=== PATIENT | female | born 2000 | race African-American/Black ===

== ENCOUNTER 2021-04-17 10:18 | Emergency (ER) | payer MEDICAID, SELFPAY ==
--- NOTE | ~2021-04-17 | US_ITS ---
EXAMINATION: ULTRASOUND OB PELVIC AND TRANSVAGINAL CLINICAL INFORMATION: Abdominal cramping. Positive home test COMPARISON: None TECHNIQUE: Transabdominal and transvaginal pelvic ultrasound was performed. Transvaginal exam was performed for better visualization of the uterus and ovaries. FINDINGS: The uterus is anteverted and normal in size and shape. No focal uterine lesion is seen. The endometrium is thickened measuring 1.8 cm. No intrauterine gestational sac is seen. The cervix is normal appearing. The right ovary measures 4.4 x 2.3 x 2.7 cm. There is a 1.8 x 2 x 2.2 cm simple right ovarian cyst in the left ovary is normal-appearing and measures 1.9 x 1 x 2.2 cm. There is no fluid in the pelvis.. US/US OB pelvic and transvaginal IMPRESSION: Thickened endometrium measuring 1.8 cm. No intrauterine seen. This may represent a very early . Correlation with quantitative beta-hCG exam and follow-up ultrasound recommended.
[2021-04-17 10:20] VITALS: BP 114/54; PULSE 66; RESP 18; TEMP 36.5; O2SAT 100; BMI 18.0
[2021-04-17 11:40] LABS: MANUAL DIFF FLAG NO
[2021-04-17 11:46] LABS: Glucose Urine UA NEG (NEG); Leukocyte Esterase Urine 1+ (NEG); Nitrite Urine NEG (NEG); PH 6.5 (5.0-8.0); UACC Culture Trigger YES; Urine Blood TRACE (NEG); Urine Ketones NEG (NEG); Urine Protein TRACE MG/DL (NEG-TRACE)
[2021-04-17 11:47] LABS: Appearance Urine CLOUDY; Color Urine YELLOW
[2021-04-17 11:48] LABS: UPreg QC Valid YES; Urine Pregnancy POSITIVE (NEGATIVE)
[2021-04-17 11:52] LABS: Basophils Percent Auto 0.4 % (0-2); Eosinophils Absolute Auto 0.1 X10*3/uL (0.0-0.4); Eosinophils Percent Auto 1.5 % (0-4); Hematocrit 40.2 % (37-47); Hemoglobin 13.5 g/dl (12.0-16.0); Imm Gran Abs Auto 0.04 X10*3/uL (0.00-0.03); Imm Gran Pct Auto 0.4 % (0.0-0.4); Lymphocytes Absolute Auto 1.9 X10*3/uL (1.2-4.9); Lymphocytes Percent Auto 20.1 % (20-40); Mean Corpuscular HGB Conc 33.6 g/dl (31.0-35.0); Mean Corpuscular Hemoglobin 30.7 pg (27.0-33.0); Mean Corpuscular Volume 91.4 fL (80-98); Mean Platelet Volume 10.3 fL (9.4-12.3); Monocytes Absolute Auto 0.7 X10*3/uL (0.1-1.2); Monocytes Percent Auto 7.7 % (2-11); Neutrophils Absolute Auto 6.4 X10*3/uL (2.0-8.3); Neutrophils Percent Auto 69.9 % (45-73); Platelet Count 330 X10*3/uL (160-400); Red Cell Distribution Width 13.2 % (11.0-16.0); White Blood Count 9.2 X10*3/uL (4.8-10.8)
[2021-04-17 11:57] LABS: Bacteria Urine 1+ /LPF; Squamous Epithelial Cell Urine 2+ /LPF
--- NOTE | 2021-04-17 12:37 | ED_ITS ---
HPI - General Chief complaint: Abdominal Pain <SANDRA Wang - Last Filed: 04/17/21 14:19> Stated complaint: abd cramps <SANDRA Wang - Last Filed: 04/17/21 14:19> Time Seen by Provider: 04/17/21 10:47 <SANDRA Wang - Last Filed: 04/17/21 14:19> Source: patient <SANDRA Wang Last Filed: 04/17/21 14:19> Mode of arrival: ambulatory <SANDRA Wang - Last Filed: 04/17/21 14:19> Limitations: no limitations <SANDRA Wang Last Filed: 04/17/21 14:19> History of Present Illness HPI Narrative: 21-year-old female with a past medical history of migraine headaches and ovarian cyst presenting to the ED with reports of a positive home test yesterday after having a last menstrual period of 03/17/2021. Reports that she took her Nexplanon out approximately 1 year ago. She was not planning this . She reports this would be her 1st she has never had a miscarriage or an . She reports she has been having some abdominal cramping for the past 4 days this is why she took the test. She denies any fevers, dizziness, headaches, nausea /vomiting, chest pain, shortness of breath, back pain, dysuria, hematuria, abnormal vaginal discharge, diarrhea, constipation, any thoughts of STD's or any other symptoms complaints or concerns at this time. <SANDRA Wang Last Filed: 04/17/21 14:19> MD Complaint: abdominal pain and other (+ home test) <SANDRA Wang - Last Filed: 04/17/21 14:19> Onset (ago): day(s) ( Four days of abdominal cramping) <SANDRA Wang Last Filed: 04/17/21 14:19> Pain Consistency: constant <SANDRA Wang Last Filed: 04/17/21 14:19> Location: abdomen ( lower abdomen) <SANDRA Wang Last Filed: 04/17/21 14:19> Severity: mild <SANDRA Wang Last Filed: 04/17/21 14:19> Quality: Cramping <SANDRA Wang Last Filed: 04/17/21 14:19> Relieving factors: none <SANDRA Wang Last Filed: 04/17/21 14:19> Exacerbating factors: none <SANDRA Wang Last Filed: 04/17/21 14:19> Associated symptoms: denies other symptoms <SANDRA Wang Last Filed: 04/17/21 14:19> Vaginal discharge: none <SANDRA Wang Last Filed: 04/17/21 14:19> Vaginal bleeding: none <SANDRA Wang Last Filed: 04/17/21 14:19> Date of Last Menstrual Period: 03/17/21 <SANDRA Wang Last Filed: 04/17/21 14:19> Patient : Yes <SANDRA Wang Last Filed: 04/17/21 14:19> care: none <SANDRA Wang Last Filed: 04/17/21 14:19> Related Data Home medications: Previous Rx's Medication Instructions Recorded nitrofurantoin monohyd/m-cryst 100 mg PO BID 7 Days #14 cap 04/17/21 [Macrobid] <SANDRA Wang Last Filed: 04/17/21 14:19> Allergies/Adverse reactions: Allergies Allergy/AdvReac Type Severity Reaction Status Date / Time No Known Allergies Allergy Verified 04/25/21 15:45 <SANDRA Wang Last Filed: 04/17/21 14:19> Review of Systems Review of Systems: Constitutional : No Weight loss, No Fever, No Chills, No Night Sweats, No Fatigue, NoMalaise ENT/Mouth: No ear pain, No sore throat, No Difficulty swallowing Cardiovascular : No Chest Pain, No SOB, No Dyspnea on Exertion, No Orthopnea, NoEdema, No Palpitations Respiratory : No Cough, No Sputum, No Wheezing, No Dyspnea Gastrointestinal : positive abdominal cramping and a positive home test, No Nausea, No Vomiting, No Diarrhea, No blood streaked emesis, No coffee- ground emesis, No gross hematemesis, No blood streak stool, No gross hematochezi a, No Melena Genitourinary : No irregular bleeding, No Dysuria, No Urinary Frequency, No Hematuria,No Urinary Incontinence, No Urgency, No Flank Pain Musculoskeletal : No joint pain, No Myalgias, No Joint Swelling Skin : No Skin Lesions, No rash Neuro : No Weakness, No Numbness, No Paresthesias, No Loss of Consciousness, NoDizziness, No Headache Psych : No Social Issues, Heme/Lymph: No Bruising, No Bleeding,No Lymphadenopathy Endocrine : No Polyuria, No Polydipsia, No Temperature Intolerance <SANDRA Wang - Last Filed: 04/17/21 14:19> Yes all other systems are reviewed and are negative <SANDRA Wang - Last Filed: 04/17/21 14:19> FORMERLY [facility], [facility]–1983 Past Medical History Attestation statement: The following information was validated with the patient. <SANDRA Wang - Last Filed: 04/17/21 14:19> Date of Last Menstrual Period: 03/17/21 <SANDRA Wang - Last Filed: 04/17/21 14:19> Physical Exam Vital Signs: Vital Signs: Last Vital Signs Temp 97.9 F 04/17/21 13:57 Pulse 69 04/17/21 13:57 Resp 14 04/17/21 13:57 BP 106/49 L 04/17/21 13:57 Pulse Ox 99 04/17/21 13:57 Body Mass Index 18.0 vital signs have been reviewed as normal and appeared to be correct. Blood pr essure hypotensive at 114/54. Heart rate normal. Respiration rate normal. Temperature normal. Oxygen saturation normal. <SANDRA Wang - Last Filed: 04/17/21 14:19> Vital Signs: Last Vital Signs Temp 97.9 F 04/17/21 13:57 Pulse 69 04/17/21 13:57 Resp 14 04/17/21 13:57 BP 106/49 L 04/17/21 13:57 Pulse Ox 99 04/17/21 13:57 Body Mass Index 18.0 <Дмитрий Macdonald MD - Last Filed: 05/06/21 20:56> Appearance: Alert. Oriented X3. No acute distress. Head: Normal external exam. Normocephalic. Eyes: PERRLA. EOMI. Conjunctiva and sclera normal. Eyelids normal. ENT: Pharynx normal. Uvula midline. Moist mucous membranes. Neck: Normal inspection. Neck supple. FROM. No adenopathy. No meningeal signs. CVS: Normal heart rate and rhythm. Heart sound normal. No murmurs noted. Pulses normal throughout. Respiratory: No respiratory distress. Painless inspiration. Breath sounds normal. No wheezes/rales/rhonchi noted. Chest nontender. No accessory muscle usage noted or decreased air movement noted. Abdomen: Soft and mild suprapubic abdominal tenderness. Nondistended. No guarding. No rigidity. Bowel sounds normal in all 4 quadrants. No distention noted. No organomegaly noted. No visible injury noted. No rebound tenderness. Negative Rovsing sign. Negative obturator's sign. Negative psoas sign. Negative [place]oa sign. Back: No CVA tenderness. Full range of motion noted. Skin: Skin warm and dry. Normal skin color. Normal skin turgor. No rashes/lesions/lacerations noted. Extremities: Extremities exhibit normal range of motion. Extremities nontender. Neuro: Oriented X 3. No motor deficit. No sensory deficit. Reflexes normal. Normal steady gait. <SANDRA Wang - Last Filed: 04/17/21 14:19> Course Course Course Narrative: 10:45am - 21-year-old female with a past medical history of migraine headaches and ovarian cyst presenting to the ED with reports of a positive home test yesterday after having a last menstrual period of 03/17/2021 With suprapubic lower abdominal cramping for the past 4 days. this would be her 1st never had a miscarriage or . Plan: Labs, UA, serum quant, 1st trimester ultrasound and re-evaluate. <SANDRA Wang - Last Filed: 04/17/21 14:19> I have reviewed the chart <Дмитрий Macdonald MD - Last Filed: 05/06/21 20:56> Reevaluation(s) Reevaluation #1: - patient when labs return and total bilirubin 1.1. Serum quant 322 which makes the patient approximately 3-5 weeks . UA revealed +1 leukocytes therefore will DC home with antibiotics for UTI. Patient had positive test. Ultrasound revealed thickened endometrium although no intrauterine seen at this time due to it may represent a very early therefore consulted with Dr. Perez the OBGYN and he recommended outpatient follow-up for Thursday on 04/19/2021 and repeat serum quant therefore placed disorder at this time for 08:00 instructed patient to return if any new or worsening symptoms and to follow up for the outpatient lab work and with Dr. Perez the alterations tailor by Thursday04/19/2021. Patient understands agrees with this plan. <SANDRA Wang - Last Filed: 04/17/21 14:19> Time: 14:15 <SANDRA Wang - Last Filed: 04/17/21 14:19> MDM - OB/Uterine Contractions Medical Records Attestation: I reviewed the patient's medical records. <SANDRA Wang - Last Filed: 04/17/21 14:19> Lab Data Attestation: I reviewed the patient's lab results. <SANDRA Wang - Last Filed: 04/17/21 14:19> Result diagrams: : 04/17/21 11:16 04/17/21 12:29 <SANDRA Wang - Last Filed: 04/17/21 14:19> Labs: Lab Results 04/17/21 04/17/21 04/17/21 Range/Units 11:07 11:08 11:16 WBC 9.2 (4.8-10.8) X10*3/uL RBC 4.40 (4.20-5.50) X10*6/uL Hgb 13.5 (12.0-16.0) g/dl Hct 40.2 (37-47) % MCV 91.4 (80-98) fL MCH 30.7 (27.0-33.0) pg MCHC 33.6 (31.0-35.0) g/dl RDW 13.2 (11.0-16.0) % Plt Count 330 (160-400) X10*3/uL MPV 10.3 (9.4-12.3) fL Immature Gran % (Auto) 0.4 (0.0-0.4) % Neut % (Auto) 69.9 (45-73) % Lymph % (Auto) 20.1 (20-40) % [place] % (Auto) 7.7 (2-11) % Eos % (Auto) 1.5 (0-4) % Baso % (Auto) 0.4 (0-2) % Lymph # (Auto) 1.9 (1.2-4.9) X10*3/uL [place] # (Auto) 0.7 (0.1-1.2) X10*3/uL Eos # (Auto) 0.1 (0.0-0.4) X10*3/uL Baso # (Auto) 0.0 (0.0-0.2) X10*3/uL Abs Immat Gran (auto) 0.04 H (0.00-0.03) X10*3/uL Absolute Neuts (auto) 6.4 (2.0-8.3) X10*3/uL Absolute Nucleated RBC 0.000 (0.0-0.012) X10*3/uL Nucleated RBC % (auto) 0.0 (0.0-0.2) /100WBC Sodium (135-145) mmol/L Potassium (3.3-5.1) mmol/L Chloride (96-108) mmol/L Carbon Dioxide (22-29) mmol/L Anion Gap (12-20) BUN (9-16) mg/dL Creatinine (0.5-1.4) mg/dL Estim Creat Clear Calc Estimated GFR Random Glucose (60-115) mg/dL Calcium (8.4-10.2) mg/dL Magnesium (1.6-2.6) mg/dL Total Bilirubin (0.0-1.0) mg/dL AST (5-31) U/L ALT (0-31) U/L Alkaline Phosphatase (39-117) U/L Total Protein (6.5-8.0) g/dL Albumin (3.5-5.0) g/dL Beta HCG, Quant mIU/mL Urine Color YELLOW Urine Appearance CLOUDY Urine pH 6.5 (5.0-8.0) Ur Specific [place] 1.020 (1.005-1.025) Urine Protein TRACE (NEG-TRACE) MG/DL Urine Glucose (UA) NEG (NEG) MG/DL Urine Ketones NEG (NEG) MG/DL Urine Blood TRACE (NEG) Urine Nitrite NEG (NEG) Ur Leukocyte Esterase 1+ H (NEG) Urine RBC 1-4 (0) /HPF Urine WBC 5-9 H (0-4) /HPF Ur Squamous Epith Cells 2+ /LPF Urine Bacteria 1+ /LPF Urine Test POSITIVE H (NEGATIVE) 04/17/21 Range/Units 12:29 WBC (4.8-10.8) X10*3/uL RBC (4.20-5.50) X10*6/uL Hgb (12.0-16.0) g/dl Hct (37-47) % MCV (80-98) fL MCH (27.0-33.0) pg MCHC (31.0-35.0) g/dl RDW (11.0-16.0) % Plt Count (160-400) X10*3/uL MPV (9.4-12.3) fL Immature Gran % (Auto) (0.0-0.4) % Neut % (Auto) (45-73) % Lymph % (Auto) (20-40) % [place] % (Auto) (2-11) % Eos % (Auto) (0-4) % Baso % (Auto) (0-2) % Lymph # (Auto) (1.2-4.9) X10*3/uL [place] # (Auto) (0.1-1.2) X10*3/uL Eos # (Auto) (0.0-0.4) X10*3/uL Baso # (Auto) (0.0-0.2) X10*3/uL Abs Immat Gran (auto) (0.00-0.03) X10*3/uL Absolute Neuts (auto) (2.0-8.3) X10*3/uL Absolute Nucleated RBC (0.0-0.012) X10*3/uL Nucleated RBC % (auto) (0.0-0.2) /100WBC Sodium 136 (135-145) mmol/L Potassium 4.0 (3.3-5.1) mmol/L Chloride 105 (96-108) mmol/L Carbon Dioxide 23 (22-29) mmol/L Anion Gap 12 (12-20) BUN 8 L (9-16) mg/dL Creatinine 0.73 (0.5-1.4) mg/dL Estim Creat Clear Calc 90.9 Estimated GFR > 60 Random Glucose 82 (60-115) mg/dL Calcium 9.1 (8.4-10.2) mg/dL Magnesium 1.7 (1.6-2.6) mg/dL Total Bilirubin 1.1 H (0.0-1.0) mg/dL AST 16 (5-31) U/L ALT 14 (0-31) U/L Alkaline Phosphatase 43 (39-117) U/L Total Protein 7.1 (6.5-8.0) g/dL Albumin 4.1 (3.5-5.0) g/dL Beta HCG, Quant 322 mIU/mL Urine Color Urine Appearance Urine pH (5.0-8.0) Ur Specific [place] (1.005-1.025) Urine Protein (NEG-TRACE) MG/DL Urine Glucose (UA) (NEG) MG/DL Urine Ketones (NEG) MG/DL Urine Blood (NEG) Urine Nitrite (NEG) Ur Leukocyte Esterase (NEG) Urine RBC (0) /HPF Urine WBC (0-4) /HPF Ur Squamous Epith Cells /LPF Urine Bacteria /LPF Urine Test (NEGATIVE) <SANDRA Wang - Last Filed: 04/17/21 14:19> Lab Results 04/17/21 04/17/21 04/17/21 Range/Units 11:07 11:08 11:16 WBC 9.2 (4.8-10.8) X10*3/uL RBC 4.40 (4.20-5.50) X10*6/uL Hgb 13.5 (12.0-16.0) g/dl Hct 40.2 (37-47) % MCV 91.4 (80-98) fL MCH 30.7 (27.0-33.0) pg MCHC 33.6 (31.0-35.0) g/dl RDW 13.2 (11.0-16.0) % Plt Count 330 (160-400) X10*3/uL MPV 10.3 (9.4-12.3) fL Immature Gran % (Auto) 0.4 (0.0-0.4) % Neut % (Auto) 69.9 (45-73) % Lymph % (Auto) 20.1 (20-40) % [place] % (Auto) 7.7 (2-11) % Eos % (Auto) 1.5 (0-4) % Baso % (Auto) 0.4 (0-2) % Lymph # (Auto) 1.9 (1.2-4.9) X10*3/uL [place] # (Auto) 0.7 (0.1-1.2) X10*3/uL Eos # (Auto) 0.1 (0.0-0.4) X10*3/uL Baso # (Auto) 0.0 (0.0-0.2) X10*3/uL Abs Immat Gran (auto) 0.04 H (0.00-0.03) X10*3/uL Absolute Neuts (auto) 6.4 (2.0-8.3) X10*3/uL Absolute Nucleated RBC 0.000 (0.0-0.012) X10*3/uL Nucleated RBC % (auto) 0.0 (0.0-0.2) /100WBC Sodium (135-145) mmol/L Potassium (3.3-5.1) mmol/L Chloride (96-108) mmol/L Carbon Dioxide (22-29) mmol/L Anion Gap (12-20) BUN (9-16) mg/dL Creatinine (0.5-1.4) mg/dL Estim Creat Clear Calc Estimated GFR Random Glucose (60-115) mg/dL Calcium (8.4-10.2) mg/dL Magnesium (1.6-2.6) mg/dL Total Bilirubin (0.0-1.0) mg/dL AST (5-31) U/L ALT (0-31) U/L Alkaline Phosphatase (39-117) U/L Total Protein (6.5-8.0) g/dL Albumin (3.5-5.0) g/dL Beta HCG, Quant mIU/mL Urine Color YELLOW Urine Appearance CLOUDY Urine pH 6.5 (5.0-8.0) Ur Specific [place] 1.020 (1.005-1.025) Urine Protein TRACE (NEG-TRACE) MG/DL Urine Glucose (UA) NEG (NEG) MG/DL Urine Ketones NEG (NEG) MG/DL Urine Blood TRACE (NEG) Urine Nitrite NEG (NEG) Ur Leukocyte Esterase 1+ H (NEG) Urine RBC 1-4 (0) /HPF Urine WBC 5-9 H (0-4) /HPF Ur Squamous Epith Cells 2+ /LPF Urine Bacteria 1+ /LPF Urine Test POSITIVE H (NEGATIVE) 04/17/21 Range/Units 12:29 WBC (4.8-10.8) X10*3/uL RBC (4.20-5.50) X10*6/uL Hgb (12.0-16.0) g/dl Hct (37-47) % MCV (80-98) fL MCH (27.0-33.0) pg MCHC (31.0-35.0) g/dl RDW (11.0-16.0) % Plt Count (160-400) X10*3/uL MPV (9.4-12.3) fL Immature Gran % (Auto) (0.0-0.4) % Neut % (Auto) (45-73) % Lymph % (Auto) (20-40) % [place] % (Auto) (2-11) % Eos % (Auto) (0-4) % Baso % (Auto) (0-2) % Lymph # (Auto) (1.2-4.9) X10*3/uL [place] # (Auto) (0.1-1.2) X10*3/uL Eos # (Auto) (0.0-0.4) X10*3/uL Baso # (Auto) (0.0-0.2) X10*3/uL Abs Immat Gran (auto) (0.00-0.03) X10*3/uL Absolute Neuts (auto) (2.0-8.3) X10*3/uL Absolute Nucleated RBC (0.0-0.012) X10*3/uL Nucleated RBC % (auto) (0.0-0.2) /100WBC Sodium 136 (135-145) mmol/L Potassium 4.0 (3.3-5.1) mmol/L Chloride 105 (96-108) mmol/L Carbon Dioxide 23 (22-29) mmol/L Anion Gap 12 (12-20) BUN 8 L (9-16) mg/dL Creatinine 0.73 (0.5-1.4) mg/dL Estim Creat Clear Calc 90.9 Estimated GFR > 60 Random Glucose 82 (60-115) mg/dL Calcium 9.1 (8.4-10.2) mg/dL Magnesium 1.7 (1.6-2.6) mg/dL Total Bilirubin 1.1 H (0.0-1.0) mg/dL AST 16 (5-31) U/L ALT 14 (0-31) U/L Alkaline Phosphatase 43 (39-117) U/L Total Protein 7.1 (6.5-8.0) g/dL Albumin 4.1 (3.5-5.0) g/dL Beta HCG, Quant 322 mIU/mL Urine Color Urine Appearance Urine pH (5.0-8.0) Ur Specific [place] (1.005-1.025) Urine Protein (NEG-TRACE) MG/DL Urine Glucose (UA) (NEG) MG/DL Urine Ketones (NEG) MG/DL Urine Blood (NEG) Urine Nitrite (NEG) Ur Leukocyte Esterase (NEG) Urine RBC (0) /HPF Urine WBC (0-4) /HPF Ur Squamous Epith Cells /LPF Urine Bacteria /LPF Urine Test (NEGATIVE) <Дмитрий Macdonald MD - Last Filed: 05/06/21 20:56> Imaging Data Ultrasound OB pelvic/transvaginal: Attestation: I personally reviewed and interpreted this imaging study as follows: <SANDRA Wang - Last Filed: 04/17/21 14:19> Radiologist's impression: FINDINGS: The uterus is anteverted and normal in size and shape. No focal uterine lesion is seen. The endometrium is thickened measuring 1.8 cm. No intrauterine gestational sac is seen. The cervix is normal appearing. The right ovary measures 4.4 x 2.3 x 2.7 cm. There is a 1.8 x 2 x 2.2 cm simple right ovarian cyst in the left ovary is normal-appearing and measures 1.9 x 1 x 2.2 cm. There is no fluid in the pelvis.. US/US OB pelvic and transvaginal IMPRESSION: Thickened endometrium measuring 1.8 cm. No intrauterine seen. This may represent a very early . Correlation with quantitative beta-hCG exam and follow-up ultrasound recommended. <SANDRA Wang - Last Filed: 04/17/21 14:19> Discharge Plan Discharge Clinical Impression: Positive blood test, , UTI (urinary tract infection) <SANDRA Wang - Last Filed: 04/17/21 14:19> Patient Disposition: Home, Self-Care <SANDRA Wang - Last Filed: 04/17/21 14:19> Instructions: (ED), Urinary Tract Infection in (ED) <SANDRA Wang - Last Filed: 04/17/21 14:19> Additional Instructions: I consulted with Dr. Perez with the OBGYN and at this time we are unable to see intrauterine on the ultrasound although your urine in your blood are positive. Her serum quant is currently 322 which makes you approximately 3-5 weeks . you will need to follow-up with OBGYN on 04/19/2021 they will call you for an appointment although you have outpatient blood work for you will have to go to the main hospital and have outpatient blood work for repeat serum quant at a.m. on 04/19/2021. Return if any new or worsening symptoms which includes any fevers, worsening abdominal pain / cramping or any vaginal bleeding at all. <SANDRA Wang - Last Filed: 04/17/21 14:19> Prescriptions: New nitrofurantoin monohyd/m-cryst [Macrobid] 100 mg capsule 100 mg PO BID 7 Days Qty: 14 RF: 0 <SANDRA Wang - Last Filed: 04/17/21 14:19> Referrals: Martin Perez MD [Physician] - 2 days <SANDRA Wang - Last Filed: 04/17/21 14:19> Interventions: ED Discharge Assessment Last Done: 04/17/21 14:26 <SANDRA Wang - Last Filed: 04/17/21 14:19> Discharge Date/Time: 04/17/21 14:28 <SANDRA Wang - Last Filed: 04/17/21 14:19> Print Language: Greek <SANDRA Wang - Last Filed: 04/17/21 14:19>
[2021-04-17 13:14] LABS: Alanine Aminotransferase 14 U/L (0-31); Albumin Level 4.1 g/dL (3.5-5.0); Alkaline Phosphatase 43 U/L (39-117); Anion Gap 12 (12-20); Aspartate Amino Transferase 16 U/L (5-31); Bilirubin Total 1.1 mg/dL (0.0-1.0); Blood Urea Nitrogen 8 mg/dL (9-16); Calcium 9.1 mg/dL (8.4-10.2); Carbon Dioxide 23 mmol/L (22-29); Chloride 105 mmol/L (96-108); Creatinine Clr Calc Pharmacy 90.9; Estimated Glomerular Filt Rate > 60; Glucose Random 82 mg/dL (60-115); Magnesium 1.7 mg/dL (1.6-2.6); Sodium 136 mmol/L (135-145); Total Protein 7.1 g/dL (6.5-8.0)
[2021-04-17 13:26] LABS: HCG Quantitative 322 mIU/mL
[2021-04-17 13:57] VITALS: BP 106/49; PULSE 69; RESP 14; TEMP 36.6; O2SAT 99
== END 2021-04-17 14:28 | disposition home or self-care (01) ==
PROVIDERS: Physician Assistant Medical; Emergency Provider Emergency Medicine
DX: O23.41 Unspecified infection of urinary tract in pregnancy, first trimester (principal); Z3A.01 Less than 8 weeks gestation of pregnancy
CPT/HCPCS: 36415; 76801; 76817; 80053; 81001; 81003; 81025; 83735; 84702; 85025; 87086; 99284

== ENCOUNTER 2021-04-19 08:43 | Outpatient (REF) | payer MEDICAID, SELFPAY ==
[2021-04-19 09:57] LABS: HCG Quantitative 494 mIU/mL
== END 2021-04-19 08:44 | disposition home or self-care (01) ==
LOC: HO.LAB 08:43
PROVIDERS: Visit Provider Obstetrics & Gynecology
DX: Z34.90 Encounter for supervision of normal pregnancy, unspecified, unspecified trimester (principal)
CPT/HCPCS: 36415; 84702

== ENCOUNTER 2021-04-21 18:52 | Outpatient (REF) | payer MEDICAID, SELFPAY ==
[2021-04-21 20:37] LABS: HCG Quantitative 1171 mIU/mL
== END 2021-04-21 18:53 | disposition home or self-care (01) ==
LOC: HO.LAB 18:52
PROVIDERS: Visit Provider Obstetrics & Gynecology
DX: Z34.90 Encounter for supervision of normal pregnancy, unspecified, unspecified trimester (principal); Z3A.00 Weeks of gestation of pregnancy not specified
CPT/HCPCS: 36415; 84702

== ENCOUNTER 2021-04-23 11:38 | Outpatient (REF) | payer MEDICAID, SELFPAY ==
[2021-04-23 12:57] LABS: HCG Quantitative 2348 mIU/mL
== END 2021-04-23 11:39 | disposition home or self-care (01) ==
LOC: HO.LAB 11:38
PROVIDERS: Visit Provider Obstetrics & Gynecology
DX: Z34.90 Encounter for supervision of normal pregnancy, unspecified, unspecified trimester (principal)
CPT/HCPCS: 36415; 84702

== ENCOUNTER 2021-04-25 14:08 | Outpatient (REF) | payer MEDICAID, SELFPAY ==
--- NOTE | ~2021-04-25 | US_ITS ---
EXAMINATION: US OBSTETRICAL ULTRASOUND CLINICAL INFORMATION: Encounter for supervision of normal . COMPARISON: Previous exam 04/17/2021. LMP: 03/17/2021. Gestational age by maternal dates is 5 weeks 4 days. Estimated date of delivery by maternal dates is 12/22/2021. TECHNIQUE: Transabdominal first trimester OB ultrasound. FINDINGS: The uterus is anteverted. There is a new cyst in the endometrium. This is slightly irregularly-shaped. This is questionable for a gestational sac. Mean sac diameter measures 0.7 cm which would suggest gestational age of 5 weeks 2 days. No pole or yolk sac seen. MATERNAL ADNEXA: The right maternal ovary measures 3.2 x 2.9 x 2.5 cm. There is a 2.6 x 1.7 x 2.3 cm cyst. The left maternal ovary measures 2.6 x 1.8 x 1.9 cm. Normal. There is no significant maternal adnexal mass. No maternal pelvic ascites. US/US OB <= 14 weeks fetus IMPRESSION: New endometrial cyst. This is slightly irregularly-shaped. Appearance is questionable for a gestational sac. Mean sac diameter would suggest gestational age of 5 weeks 2 days. No pole or yolk sac seen. Continued imaging follow-up recommended. 2.6 x 1.7 x 2.3 cm simple right ovarian cyst.
[2021-04-25 15:10] LABS: HCG Quantitative 4218 mIU/mL
== END 2021-04-25 14:09 | disposition home or self-care (01) ==
LOC: HO.US 14:08
PROVIDERS: Visit Provider Obstetrics & Gynecology
DX: O36.80X0 Pregnancy with inconclusive fetal viability, not applicable or unspecified (principal)
CPT/HCPCS: 36415; 76801; 84702

== ENCOUNTER 2021-05-10 11:10 | Outpatient (REF) | payer MEDICAID, SELFPAY ==
--- NOTE | ~2021-05-10 | US_ITS ---
EXAMINATION: OBSTETRICAL ULTRASOUND, FIRST TRIMESTER HISTORY: 21-year-old at the 7.5 weeks of gestation Fever LMP: 03/17/2021 COMPARISON: 04/25/2021 TECHNIQUE: Real time transabdominal imaging with color and M-mode Doppler. FINDINGS: A single, live IUP CRL of 12.3 mm c/w 7.4wks is noted. Heart Rate: 160 beats per minute. Both maternal ovaries are seen and appear normal. GESTATIONAL AGE: 1. GA from LMP: 7.5 wks 2. GA from AUA: 7.4 wks ESTIMATED DATE OF DELIVERY: 1. FERDINAND from LMP: 12/22/2020 2. EFRDINAND from AUA: 12/23/2020 US/US OB <= 14 weeks fetus IMPRESSION: 1. A single live IUP with CRL consistent with 7.5 weeks of gestation confirming her FERDINAND of the 12/22/2020. 2. Normal ovaries Thank you very much for this referral. This note was generated with a voice recognition program. Please excuse any errors which may have been overlooked during my review of this note. Sometimes these errors may affect the content or meaning of a given sentence.
== END 2021-05-10 11:11 | disposition home or self-care (01) ==
LOC: HO.US 11:10
PROVIDERS: Visit Provider Obstetrics & Gynecology
DX: O26.891 Other specified pregnancy related conditions, first trimester (principal); Z3A.01 Less than 8 weeks gestation of pregnancy; R50.9 Fever, unspecified
CPT/HCPCS: 76801

== ENCOUNTER → 2021-05-14 12:10 | Outpatient (BNVA) | payer MEDICAID, SELFPAY | PROVIDERS: PCP Internal Medicine; Visit Provider Obstetrics & Gynecology ==

== ENCOUNTER → 2021-06-18 14:13 | Outpatient (BNVA) | payer MEDICAID, SELFPAY | PROVIDERS: PCP Internal Medicine; Visit Provider Obstetrics & Gynecology | DX: Z34.01 Encounter for supervision of normal first pregnancy, first trimester (principal); Z3A.13 13 weeks gestation of pregnancy | CPT/HCPCS: 99212 ==

== ENCOUNTER 2021-06-21 09:56 | Outpatient (REF) | payer MEDICAID, SELFPAY ==
--- NOTE | ~2021-06-21 | US_ITS ---
EXAMINATION: OBSTETRICAL ULTRASOUND, FIRST TRIMESTER HISTORY: 21-year-old at 13.5 weeks of gestation NT screening COMPARISON: None TECHNIQUE: Real time transabdominal imaging with color and M-mode Doppler. FINDINGS: A single, live IUP CRL of 76.7 mm c/w 13.6wks is noted. Heart Rate: 143 beats per minute. Normal yolk sac seen. NT was 0.9.mm. NB Present The embryo appears sonographically wnl for this GA. Uterine synechiae is noted. This is a benign finding. Right ovary is within normal limits. Left was not visualized. GESTATIONAL AGE: 1. Established GA: 13.5 wks 2. GA from AUA: 13.6 wks ESTIMATED DATE OF DELIVERY: 1. Established FERDINAND: 12/22/2021 2. FERDINAND from AUA: 12/21/2021 US/US OB 1T nuc measure IMPRESSION: 1. A single live IUP 2. Size equals dates 3. NT of 0.9 mm MFM Consultation: I reviewed the ultrasound findings along with significance of NT measurement. The NT of less than 3mm is generally reassuring. However, the sensitivity for T21 detection is only 60%. I reviewed the availability of serum aneuploidy screening which includes cell-free DNA and placental protein based tests. I discussed the sensitivity, false-positive rate, and other limitations associated with each test. I also reviewed the availability of invasive diagnostic tests that are associated small but definite risk of miscarriage. We also reviewed the differences between screening tests and diagnostic tests. After our discussion, she opted for the First trimester screening that is based on cell-free DNA or non-invasive testing (NIPT). The result will be faxed to your office in approximately 7 days. A follow up at 18 weeks for survey has been scheduled. Thank you very much for this referral. Total time 30 minutes. The time spent was devoted to counseling the patient about the disease and diagnosis, coordinating care including reviewing her records, pertinent lab data and studies, as well as discussing diagnostic evaluation and workup, plan therapeutic interventions and future disposition of care. This includes any additional research needed to obtain further information in formulating the plan of care of this patient. This note was generated with a voice recognition program. Please excuse any errors which may have been overlooked during my review of this note. Sometimes these errors may affect the content or meaning of a given sentence.
[2021-06-21 13:10] LABS: Hematocrit 36.5 % (37-47); Hemoglobin 12.1 g/dl (12.0-16.0); Mean Corpuscular HGB Conc 33.2 g/dl (31.0-35.0); Mean Corpuscular Hemoglobin 30.2 pg (27.0-33.0); Mean Platelet Volume 9.8 fL (9.4-12.3); Platelet Count 369 X10*3/uL (160-400); Red Blood Count 4.01 X10*6/uL (4.20-5.50); Red Cell Distribution Width 13.2 % (11.0-16.0); White Blood Count 12.6 X10*3/uL (4.8-10.8)
[2021-06-21 13:27] LABS: Glucose 1 Hour PP 50gm Dose 95 mg/dL (60-140)
[2021-06-21 13:28] LABS: Amphetamine Screen Urine Not Detected (Not Detect); Barbiturates, Urine Not Detected (Not Detect); Benzodiazepines Screen Urine Not Detected (Not Detect); Cannabinoid Screen Urine Not Detected (Not Detect); Cocaine Screen Urine Not Detected (Not Detect); Fentanyl, urine Not Detected (Not Detect); Opiate Screen Urine Not Detected (Not Detect); Phencyclidine Screen Urine Not Detected (Not Detect)
[2021-06-21 13:50] LABS: HBsAGNum1 0.26 S/CO (0.00-0.99); HIV AB/AG Nonreactive (Nonreactive); HIV Num 1 0.05 S/CO (0.00-0.99); Hepatitis B Surface Antigen Negative (Negative); ~HepC Num1 0.25 S/CO (0.00-0.79); ~Hepatitis C Antibody Nonreactive (Nonreactive)
[2021-06-21 13:52] LABS: Syphilis Screen Nonreactive (Nonreactive)
[2021-06-24 13:46] LABS: Hematocrit 37.5 % (35.0-45.0); Hemoglobin 12.1 g/dL (11.7-15.5); MCH 29.7 pg (27.0-33.0); MCV 91.9 fL (80.0-100.0); RBC 4.08 Million/uL (3.80-5.10)
== END 2021-06-21 09:57 | disposition home or self-care (01) ==
LOC: HO.US 09:56
PROVIDERS: Visit Provider Obstetrics & Gynecology
DX: Z34.90 Encounter for supervision of normal pregnancy, unspecified, unspecified trimester (principal); Z36.82 Encounter for antenatal screening for nuchal translucency
CPT/HCPCS: 76813; 80307; 83020; 85014; 85018; 85027; 85041; 86762; 86780; 86787; 86803; 86850; 86900; 86901; 87086; 87340; 87389

== ENCOUNTER 2021-08-08 10:30 | Outpatient (REF) | payer MEDICAID, SELFPAY ==
[2021-08-09 16:46] LABS: CT PCR NOT DETECTED (Not Detect.); NG PCR NOT DETECTED (Not Detect.)
[2021-08-10 14:46] LABS: BV Int Neg Control Negative (Negative); BV Int Pos Control Positive (Positive)
== END 2021-08-08 10:31 | disposition home or self-care (01) ==
LOC: HO.LAB 10:30
PROVIDERS: Visit Provider Advanced Practice Midwife
DX: Z34.92 Encounter for supervision of normal pregnancy, unspecified, second trimester (principal); Z36.3 Encounter for antenatal screening for malformations; Z3A.20 20 weeks gestation of pregnancy
CPT/HCPCS: 87480; 87491; 87510; 87591; 87660; 88142; 99212

== ENCOUNTER 2021-08-09 11:33 | Outpatient (REF) | payer MEDICAID, SELFPAY ==
--- NOTE | ~2021-08-09 | US_ITS ---
EXAMINATION: US OBSTETRICAL CLINICAL INFORMATION: 21-year-old at 20.5 weeks of gestation Screening for anomaly COMPARISON: 06/21/2021 TECHNIQUE: Real-time transabdominal ultrasound was performed using C1-5 megahertz transducer. FINDINGS: A single, active, fetus is seen in breech presentation. The placenta is anterior without previa, and the amniotic fluid volume is wnl. MEASUREMENTS: 1. Biparietal Diameter: 4.6 cm; 19.6 wks 2. Occipital Frontal Diameter: 6.3 cm 3. Head Circumference: 17.4 cm; 20.0 wks 4. Abdominal Circumference: 15.1 cm; 20.3 wks 5. Femur Length: 3.32 cm; 20.3 wks 6. Humerus Length: 3.2 cm; 20.4 wks 7. Tibia Length: 2.97 cm; 21.0 wks 8. Ulna Length: 3.1 cm; 22.0 wks 9. Lateral ventricle: 0.6 cm 10. Cerebellum: 2.0 cm; 20.2 wks 11. Cisterna Magna: 0.4 cm 12. Nuchal Fold: 4.4 mm 13. Heart Rate: 139 beats per minute Rt ovary: normal Lt ovary: normal Cervical length 2.9 cm on T/A. GESTATIONAL AGE: 1. Established GA: 20.5 wks 2. GA from [facility]: 20.2 wks ESTIMATED DATE OF DELIVERY: 1. Established FERDINAND: 12/25/2021 2. FERD[place] from [facility]: 12/22/2021 ANATOMY: The visualized anatomy includes but not limited to: 1. Cranium: Normal 2. Intracranial anatomy: cavum septum pellucidi, lateral ventricles, choroid plexus, cerebellum, posterior fossa, third and fourth ventricles. 3. face: orbits, lip/palate, profile, nasal bone 4. Heart: four-chamber view of the heart, ventricular septum, foramen ovale, pulmonary vein, left and right outflow tracts, three-vessel view, 3 vessel trachea view, aortic and ductal arches, situs.. 5. Diaphragm: Normal 6. Abdominal wall: Normal 7. Cord Insertion: Normal 8. Spine: Cervical, thoracic, lumbar, sacral. 9. Stomach: Normal size and shape 10. Right Kidney: Normal 11. Left Kidney: Normal 12. 3 vessel cord: Normal 13. Upper extremity: Open hands, fifth digit. 14. Lower extremity: Tibia, fibula, bilateral feet. 15. Bladder: Normal 16. Genitalia: Female, patient aware US/US OB /maternal detail IMPRESSION: 1. Single, living, intrauterine with appropriate biometry. 2. Normal survey DISCUSSION: I reviewed today's ultrasound findings. We discussed the limitations of ultrasound in diagnosing aneuploidy and other congenital abnormalities. I reviewed the differences between screening test and diagnostic test. Amniocentesis was discussed and declined. She was informed that the baseline incidence of congenital abnormalities is approximately 3-5%. Not all these conditions are diagnosable in utero. RECOMMENDATIONS: 1. Follow-up when necessary Thank you for allowing me to participate in her care. Total time 30 minutes. The time spent was devoted to counseling the patient about the disease and diagnosis, coordinating care including reviewing her records, pertinent lab data and studies, as well as discussing diagnostic evaluation and workup, plan therapeutic interventions and future disposition of care. This includes any additional research needed to obtain further information in formulating the plan of care of this patient. This note was generated with a voice recognition program. Please excuse any errors which may have been overlooked during my review of this note. Sometimes these errors may affect the content or meaning of a given sentence.
== END 2021-08-09 11:34 | disposition home or self-care (01) ==
LOC: HO.US 11:33
PROVIDERS: PCP Internal Medicine; Visit Provider Advanced Practice Midwife
DX: Z34.92 Encounter for supervision of normal pregnancy, unspecified, second trimester (principal); Z36.3 Encounter for antenatal screening for malformations
CPT/HCPCS: 76811

== ENCOUNTER → 2021-09-12 11:38 | Outpatient (BNVA) | payer MEDICAID, SELFPAY | PROVIDERS: Visit Provider Advanced Practice Midwife | DX: O36.5920 Maternal care for other known or suspected poor fetal growth, second trimester, not applicable or unspecified (principal); Z3A.25 25 weeks gestation of pregnancy | CPT/HCPCS: 90686; 99212 ==

== ENCOUNTER 2021-09-20 09:38 | Outpatient (REF) | payer MEDICAID, SELFPAY ==
--- NOTE | ~2021-09-20 | US_ITS ---
EXAMINATION: OBSTETRICAL ULTRASOUND, Follow up HISTORY: 21-year-old at 26.5 weeks of gestation Size date discrepancy COMPARISON: 08/09/2021 TECHNIQUE: Real time transabdominal imaging with color and M-mode Doppler. PRESENTATION: Vertex PLACENTA LOCATION: Anterior without previa AMNIOTIC FLUID: Normal MEASUREMENTS: 1. Biparietal Diameter: 6.3 cm; 25.5 wks 2. Head Circumference: 24.2 cm; 26.2 wks 3. Abdominal Circumference: 22.3 cm; 26.6 wks 4. Femur Length: 5.1 cm; 27.2 wks 5. Heart Rate: 139 beats per minute WEIGHT: EFW: 989 grams (2 lbs 3 oz) -- 43 %. BIOPHYSICAL PROFILE: Motion: 2 Tone: 2 Breathin Amniotic Fluid: 2 Total score: 8/8 GESTATIONAL AGE: 1. Established GA: 26.5 wks 2. GA from [facility]: 26.4 wks ESTIMATED DATE OF DELIVERY: 1. Established FERDINAND: 12/22/2021 2. FERDINAND from [facility]: 12/23/2021 US/US OB follow up IMPRESSION: 1. A single active fetus in vertex presentation 2. Size equals dates 3. Normal BPP Thank you very much for this referral. This note was generated with a voice recognition program. Please excuse any errors which may have been overlooked during my review of this note. Sometimes these errors may affect the content or meaning of a given sentence.
== END 2021-09-20 09:39 | disposition home or self-care (01) ==
LOC: HO.US 09:38
PROVIDERS: PCP Internal Medicine; Visit Provider Advanced Practice Midwife
DX: O36.5990 Maternal care for other known or suspected poor fetal growth, unspecified trimester, not applicable or unspecified (principal); O26.842 Uterine size-date discrepancy, second trimester; Z3A.26 26 weeks gestation of pregnancy
CPT/HCPCS: 76816

== ENCOUNTER 2021-10-25 11:19 | Outpatient (REF) | payer MEDICAID, SELFPAY ==
[2021-10-25 13:21] LABS: Binax Internal Control QC Valid; Binax Lot number: 9864; Binax Now Covid-19 Ag Negative (Negative)
== END 2021-10-25 11:20 | disposition home or self-care (01) ==
LOC: HO.LAB 11:19
PROVIDERS: Visit Provider Internal Medicine
DX: Z20.822 Contact with and (suspected) exposure to COVID-19 (principal)
CPT/HCPCS: C9803

== ENCOUNTER 2022-02-20 22:03 | Emergency (ER) | payer MEDICAID, SELFPAY ==
[2022-02-20 22:52] VITALS: BP 128/78; PULSE 116; RESP 16; TEMP 36.9; O2SAT 99; BMI 22.4
[2022-02-20 23:19] LABS: Strep A Nucleic Acid Invalid (Negative)
[2022-02-20 23:46] LABS: Influenza A PCR NEGATIVE (Negative); Influenza B PCR NEGATIVE (Negative); Resp Syncy Virus RNA Qual PCR NEGATIVE (Negative); SARS COV2 PCR INHOUSE NEGATIVE (Negative)
[2022-02-21 00:11] LABS: Strep A Nucleic Acid Invalid (Negative)
--- NOTE | 2022-02-21 00:43 | ED_ITS ---
HPI - General Adult General Chief complaint: General Medical Stated complaint: ? strep, fever ,sore throat Time Seen by Provider: 02/21/22 00:34 Source: patient Mode of arrival: ambulatory Limitations: no limitations History of Present Illness HPI narrative: Patient comes to the emergency room complaining of a sore throat. Patient states it has been 4 days with the same symptoms. Patient was diagnosed with strep couple of days ago, patient taking Augmentin. Patient states that despite treatment she has still been spiking fever. Patient complaining of nausea, no vomiting or diarrhea. No abdominal pain, no chest pain or shortness of breath, no lower extremity swelling or pain. Related Data Home Medications Medication Instructions Recorded Confirmed prenat.vits,daivd,xrr-kiej-pqvlv 1 tab PO DAILY 08/08/21 08/08/21 Previous Rx's Medication Instructions Recorded miconazole nitrate 2 % vaginal 1 appful VAGINAL BEDTIME 7 Days 08/13/21 cream (Monistat 7) #45 g acetaminophen 500 mg tablet 500 mg PO Q6H PRN #14 tab 02/21/22 Allergies Allergy/AdvReac Type Severity Reaction Status Date / Time No Known Allergies Allergy Verified 09/12/21 11:46 Review of Systems Review of Systems: Constitutional : No Weight loss, complaining of intermittent fever, generalized malaise ENT/Mouth : No Hearing loss, No Ear Pain, No Nasal Congestion, No Sinus Pain, No Hoarseness, complaining of sore throat, No Rhinorrhea, No Swallowing Difficulty Eyes: No Eye Pain, No Swelling, No Redness, No Foreign Body, No Discharge, No Vision Changes Cardiovascular : No Chest Pain, No SOB, No Dyspnea on Exertion, No Orthopnea, No Edema, No Palpitations Respiratory : No cough, no wheezing Gastrointestinal : No Nausea, No Vomiting, No Diarrhea, No Constipation, No abdominal Pain, No Hematochezia, No Melena Genitourinary : no irregular bleeding, No Dysuria, No Urinary Frequency, No Hematuria, No Urinary Incontinence, No Urgency, No Flank Pain, No Urinary Flow Changes, No Hesitancy Musculoskeletal : No joint pain, No Myalgias, No Joint Swelling Skin : No Skin Lesions, No rash Neuro : No Weakness, No Numbness, No Paresthesias, No Loss of Consciousness, No Dizziness, No Headache Psych : No Anxiety/Panic, No Depression, No SI/HI/AH/VH, No Social Issues, Heme/Lymph: No Bruising, No Bleeding,No Lymphadenopathy Endocrine : No Polyuria, No Polydipsia, No Temperature Intolerance [facility] Family History Family History Father Hypertension Maternal Grandmother Hx of type 1 diabetes mellitus Social History Social History Household Members: Family Housing: Apartment Are you a primary director long term care to a significant other at home: No Do you presently have visiting nurse or other home services: No Alcohol intake: former Patient Tobacco Use Status: Never used Tobacco Substance Use Type: Marijuana Trauma History: none Special kahlil needs: No Agree to transfusion: Yes Advance Directives: No Physical Exam ED Vital Signs: Vital Signs - 24 hr 02/20/22 22:52 02/21/22 02:23 Temperature 98.5 F 100.7 F H Pulse Rate 116 H 72 Respiratory Rate 16 16 Blood Pressure 128/78 128/68 Pulse Oximetry 99 98 BMI result Body Mass Index 22.4 Const Other: Appearance: Alert. Oriented X3. No acute distress. Eyes: Pupils equal, round and reactive to light. ENT: Erythematous oropharynx, no visible exudates or abscesses, normal tongue, no vesicles. Patient is congested Neck: Normal inspection. Neck supple. No lymph nodes noted. No crepitus CVS: Normal heart rate and rhythm. Pulses normal. Normal S1 and S2 Respiratory: No respiratory distress. Breath sounds normal. No Wheezing. No rales Abdomen: Soft and nontender. No rigidity. No distention. Skin: Skin warm and dry. Normal skin color. Normal skin turgor. Extremities: No lower extremity edema. No Lacerations. No Rash Neuro: Oriented X 3. No motor deficit. No sensory deficit. Moving all extremities. No slurred speech. CN 2 through 12 grossly intact Psych: calm, cooperative, normal affect Course Course Course Narrative: Rapid strep test was inconclusive. Patient is already being treated for strep. COVID and influenza negative. I discussed with the patient that we will go ahead and sister for mononucleosis. Patient agrees with plan. Patient was also given a dose of Decadron p.o. and viscous lidocaine. Monospot test pending. Sign out given to Dr. Chan Medical Decision Making Lab Data Labs: Lab Results 02/20/22 02/20/22 02/20/22 Range/Units 23:04 23:04 23:41 Influenza Type A (PCR) NEGATIVE (Negative) Influenza Type B (PCR) NEGATIVE (Negative) RSV RNA Qual (PCR) NEGATIVE (Negative) SARS-CoV-2 RNA (RT-PCR) NEGATIVE (Negative) S. pyogenes GrpA HUNG Invalid Invalid (Negative) Discharge Plan Discharge Clinical Impression: Acute viral syndrome Patient Disposition: Home, Self-Care Instructions: Viral Syndrome (ED) Additional Instructions: Please follow-up with your primary care physician tomorrow. If you have any worsening or new symptoms, please return to the emergency room or call 911 Prescriptions: New acetaminophen 500 mg tablet 500 mg PO Q6H PRN (Reason: fever or pain) Qty: 14 0RF No Action miconazole nitrate [Monistat 7] 2 % cream 1 appful vaginal BEDTIME 7 Days Qty: 45 0RF prenat.vits,david,bar-tgoo-[id number] Tablet 1 tab PO DAILY 0RF
[2022-02-21] MEDS: Lidocaine HCl Viscous 2 % 15 ML SOLUTION MUCOUS MEM (01:29)
[2022-02-21] MEDS: dexAMETHasone sod phosphate 4 MG/ML VIAL 6 MG IVPUSH (01:29)
[2022-02-21 02:23] VITALS: BP 128/68; PULSE 72; RESP 16; TEMP 38.2; O2SAT 98
[2022-02-21 02:34] LABS: Monotest Negative (Negative)
[2022-02-21] MEDS: Ibuprofen 400 MG TABLET PO (03:11)
[2022-02-21] MEDS: Amoxicillin/Potassium Clav 875 MG TABLET PO (03:11)
[2022-02-21] MEDS: Acetaminophen 325 MG TABLET 975 MG PO (03:11)
== END 2022-02-21 03:18 | disposition home or self-care (01) ==
PROVIDERS: Emergency Provider Emergency Medicine; PCP Internal Medicine
DX: B34.9 Viral infection, unspecified (principal); J02.0 Streptococcal pharyngitis; Z20.822 Contact with and (suspected) exposure to COVID-19
CPT/HCPCS: 0241U; 36415; 86308; 87651; 96374; 99283; 99284; J1100

== ENCOUNTER 2023-10-14 23:04 | Emergency (ER) | payer MEDICAID, SELFPAY | END 2023-10-14 23:38 | disposition left against medical advice (07) | LOC: HO.ED 23:29 | PROVIDERS: Emergency Provider Emergency Medicine | DX: Z53.21 Procedure and treatment not carried out due to patient leaving prior to being seen by health care provider (principal) ==